=== PATIENT | male | born 1960 | race African-American/Black ===

== ENCOUNTER 2019-08-12 23:32 | Emergency (ER) | payer OTHER | END 2019-08-13 00:18 | disposition home or self-care (01) | LOC: MED 23:32 | DX: Z04.1 Encounter for examination and observation following transport accident (principal); Z02.89 Encounter for other administrative examinations; Z98.890 Other specified postprocedural states; V89.2XXA Person injured in unspecified motor-vehicle accident, traffic, initial encounter; Y93.89 Activity, other specified; Y92.89 Other specified places as the place of occurrence of the external cause; Y99.8 Other external cause status | CPT/HCPCS: 99283 ==